=== PATIENT | female | born 1945 | race Caucasian/White ===

== ENCOUNTER → 2017-06-27 15:23 | Outpatient (CLI) | payer MEDICAID, MEDICARE, SELFPAY ==
[2017-06-27 15:51] LABS: Bacteria 0 SEEN /hpf (None Seen); Mucous, Urine 0 SEEN /hpf (<or=2+); Red Blood Cells-Urine 0 SEEN /hpf (0-5); White Blood Cells 0 SEEN /hpf (0-5)
[2017-06-27 18:02] LABS: Color, Urine Yellow (Yellow); Glucose, Dipstick Normal (Normal); Ketone-Dipstick Negative (Negative); Leukocyte Esterase-Dipstick Negative /ul (Negative); Nitrite-Dipstick Negative (Negative); Occult Blood-Urine Negative /ul (Negative); Protein-Dipstick Negative (Negative); Urine Bilirubin Dipstick Negative (Negative); Urine Clarity Sl. Cloudy (Clear); Urine Urobilinogen Normal (Normal)
[2017-06-27 18:34] LABS: Absolute Lymphocyte Count 3.24 X10^3/ul (0.83-4.51); Absolute Neutrophil Count 6.9 X10^3/uL (2.0-7.7); Basophil# 0.06 X10^3/uL; Basophil% 0.5 % (0-1); Eosinophil# 0.34 X10^3/uL; Eosinophils% 2.9 % (0-5); Hemoglobin 14.5 g/dl (12.0-15.0); Lymphocyte # 3.24 X10^3/ul (4.0); Lymphocyte % 27.9 % (19-41); Mean Corp Hgb Conc 32.2 g/gl (32-36); Mean Corpuscular Hgb 28.6 pg (27.0-32.0); Mean Corpuscular Volume 88.8 fL (81-99); Monocyte# 0.98 X10^3/uL; Monocyte% 8.4 % (0-10); Neutrophil # 6.86 X10^3/uL (2.7-7.7); Platelet Count 257 K/mm3 (150-450); RBC Distribution Width CV 14.3 % (11.6-14.6); RBC Distribution Width SD 45.8 fl (35.1-43.9); Red Blood Count 5.07 M/mm3 (4.2-5.4); Squamous Epithelial Cells - UA 0-5 SEEN /hpf (5-10); White Blood Count 11.6 K/mm3 (4.4-11.0)
[2017-06-27 18:40] LABS: ALB/GLOB Ratio 1.1 RATIO (0.9-2.4); AST(SGOT) 14 U/L (15-37); Alanine Aminotransfer ALT/SGPT 21 U/L (13-56); Albumin, Serum 4.1 g/dL (3.2-5.0); Alkaline Phosphatase 98 U/L (45-117); Anion Gap 10 (5-15); BUN 10 mg/dL (7-18); BUN/Creat Ratio 13.6 RATIO (10-20); Calcium,Total 9.7 mg/dL (8.5-10.1); Chloride 101 mmol/L (98-107); Cholesterol 135 mg/dL (200); Creatinine, Serum 0.73 mg/dL (0.55-1.02); EST Glomerular Filtration Rate 83 mL/min (>60); Est Glom Filt Rate - Afr Amer 100 mL/min (>60); Globulin 3.8 g/dL (2.2-4.2); Glucose 95 mg/dL (74-106); High Density Lipoprotein 34 mg/dL; Potassium 4.1 mmol/L (3.5-5.1); Protein, Total 7.9 g/dL (6.4-8.2); Sodium Level 138 mmol/L (136-145); Thyroid Stim Hormone (TSH) 3.09 uIU/mL (0.358-3.74); Triglycerides 267 mg/dL; Very Low Density Lipoprotein 53 mg/dL (5-40)
[2017-06-27 18:52] LABS: POSITIVE COUNT NO; POSITIVE DIFFERENTIAL NO; POSITIVE MORPHOLOGY NO
[2017-06-28 10:03] LABS: Vitamin B12 382 pg/mL (211-911)
== END ==
PROVIDERS: Family Provider Family Medicine; PCP Family Medicine; Visit Provider Family Medicine
DX: E11.9 Type 2 diabetes mellitus without complications (principal); Z72.0 Tobacco use; G62.9 Polyneuropathy, unspecified
CPT/HCPCS: 80053; 80061; 81001; 82043; 82570; 82607; 82746; 83036; 84425; 84443; 85025

== ENCOUNTER → 2017-07-11 08:48 | Outpatient (CLI) | payer MEDICARE, SELFPAY ==
--- NOTE | 2017-07-11 10:00 | NM_ITS ---
CLINICAL: 72-year-old female with reported history of early satiety. SEMI-SOLID PHASE 99m Tc SULFUR COLLOID GASTRIC EMPTYING STUDY COMPARISON: None available FINDINGS: The patient was administered 1.1 mCi of 99m Tc sulfur colloid mixed with oatmeal and consumed per os. Image acquisitions in the anterior-posterior projections for a total of 60 minutes. There is prompt visualization of the stomach. There is no gastroesophageal reflux identified. The T1/2 linear fit was calculated to be 38.10 minutes, (Normal: 12-56 minutes). NM/Gastric Emptying Study IMPRESSION: 1. NORMAL 99m Tc sulfur colloid semi-solid phase (oatmeal) gastric emptying imaging examination. A. There is normal and preserved semi-solid phase gastric emptying compared to normal controls with maintained first order kinetics throughout all components of the examination. (Raven et al, J Nucl Med Tech 38: 186, 2010). Electronically Signed: Isidro Crocker DO at 23:54 EDT Tel , Service support ,
--- NOTE | 2017-07-11 12:19 | PFT ---
INTRODUCTION: The patient is a 72-year-old female who presents for pulmonary function testing secondary to a diagnosis of COPD. Respiratory therapy reports good patient effort. Bronchodilators were used during testing. INTERPRETATION: Forced expiration spirometry demonstrates the presence of a severe large airways obstructive ventilatory defect. There was a significant response to aerosolized bronchodilators noted. Spirograms are of fair quality and do not plateau indicating slow emptying of the lungs. Body plethysmography was performed and reveals an elevated RV to 142% of predicted, indicative of underlying air trapping. Diffusing capacity by single breath CO is mildly reduced at 62% of predicted. IMPRESSION: These pulmonary function studies demonstrate the presence of a partially reversible severe large airways obstructive ventilatory defect with associated air trapping and reduction in diffusing capacity. There are no previous pulmonary function studies available for comparison.
== END ==
PROVIDERS: Family Provider Family Medicine; PCP Family Medicine; Visit Provider Family Medicine
DX: J44.9 Chronic obstructive pulmonary disease, unspecified (principal); R68.81 Early satiety
CPT/HCPCS: 78264; 94060; 94726; 94729; A9541

== ENCOUNTER → 2017-08-28 12:05 | Outpatient (CLI) | payer MEDICARE, SELFPAY ==
--- NOTE | 2017-08-28 12:14 | RAD_ITS ---
STUDY: X-RAY - SACRUM/COCCYX REASON FOR EXAM: Female, 72 years old. Chronic pain TECHNIQUE: 3 view(s) of the sacrum and coccyx were obtained. COMPARISON: None. FINDINGS: Normal bilateral sacroiliac joints. Normal visualized sacral ala and fused sacral bodies. Normal sacrococcygeal junction with a normal angulation. Normal coccygeal segments. The presacral soft tissue structures are unremarkable. There is no demonstrated fracture. Degenerative changes noted in the lower lumbar spine RAD/Sacrum-Coccyx min 2 Views IMPRESSION: No fracture or suspicious osseous lesion Electronically Signed: Raymond Elmore MD at 8:25 EDT , Service support ,
--- NOTE | 2017-08-28 12:14 | RAD_ITS ---
STUDY: X-RAY - PELVIS AND LEFT HIP REASON FOR EXAM: Female, 72 years old. Chronic pain TECHNIQUE: Radiological exam, hip, unilateral, with pelvis when performed; 2 or 3 views. 3 views. COMPARISON: None. FINDINGS: There is a non-specific bowel gas pattern. Normal visualized soft tissue structures. There is narrowing with cortical sclerosis and osteophyte formation of the sacroiliac joint consistent with degenerative osteoarthritic changes. Normal bilateral superior and inferior pubic rami. Normal pubic symphysis. Normal bilateral ischial tuberosities. Normal visualized femoral head. Normal acetabulum. There is moderate articular joint space narrowing of the hip. RAD/Hip 2-3 Views with Pelvis IMPRESSION: Degenerative arthrosis, no demonstrated fracture or aggressive osseous lesion Electronically Signed: Raymond Elmore MD at 15:51 EDT , Service support ,
--- NOTE | 2017-08-28 12:14 | RAD_ITS ---
STUDY: X-RAY - LUMBAR SPINE REASON FOR EXAM: Female, 72 years old. Back pain TECHNIQUE: 5 view(s) of the lumbar spine were obtained. COMPARISON: None FINDINGS: There are NO fractures or malalignments. There are multilevel degenerative disc and facet changes. Facet joints are intact. The sacrum and sacroiliac joints are intact. The soft tissues are unremarkable. RAD/L/S Spine Min 4 Views IMPRESSION: There are degenerative changes of the lumbar spine. There are NO fractures or malalignments. Electronically Signed: Gary Marquez MD at 4:59 EDT , Service support ,
== END ==
PROVIDERS: Family Provider Family Medicine; PCP Family Medicine; Visit Provider Family Medicine
DX: M25.559 Pain in unspecified hip (principal); M54.5 Low back pain; S32.9XXA Fracture of unspecified parts of lumbosacral spine and pelvis, initial encounter for closed fracture
CPT/HCPCS: 72110; 72220; 73502

== ENCOUNTER 2017-09-11 15:46 | Outpatient (RCR) | payer MEDICARE, SELFPAY ==
--- NOTE | 2017-11-26 10:59 | HP.PTDCNRP_ITS ---
HP - Discharge Summary (1) - Patient Information JOEY POSADA was seen in my office for initial evaluation on 09/11/17. The following Plan of Care was established for this patient: Initial Frequency: 2x /Week Initial Duration: 4 Weeks - Anticipated Interventions Patient/Client Instruction: Educate patient on: Condition, Plan of Care, Risk Factors, Benefits of Fitness Program For the Purpose of:: To improve health and function, To foster healthy habits, To improve decision making, To facilitate caregiver knowledge, To improve self management, To prevent re-injury, To improve ability to perform tasks related to life management, To improve tolerance to ADL's Therapeutic Exercise to Include: Strength training, Power training, Body mechanics, Postural training, Flexibilty training, Passive ROM, Active ROM For the Purpose of:: To decrease pain, To decrease swelling/inflammation, To increase ROM, To improve nutrient delivery to tissue, To improve gait and locom otor functions, To improve health of tissue, To decrease soft tissue restriction, To increase flexibility/ROM IF ES: Yes Cryotherapy (ice pack, ice massage): Yes Ultrasound (thermal/non thermal): Yes For the Purpose of:: To decrease pain, To decrease swelling/inflammation, To increase ROM, To improve nutrient delivery to tissue This patient was last seen in our office 09/11/17. Pertinent comments regarding their Physical therapy will appear below: Pt. was seen for her hip pain. She was concerned about a possibly avulsion fracture of her ASIS at this point in time. He were to work on ROM, strengthening and gait progression as tolerated. Pt. did not return to any subsequent visits. Pt. has not been seen in ~3 months and will be DC from PT at this point in time. At this point I will be discontinuing this patient from physical therapy. I would be happy to see this patient again in the future if found appropriate by the physician. Thank you! Shola Aceves
== END 2017-09-11 19:00 | disposition home or self-care (01) ==
LOC: PT 15:46
PROVIDERS: Family Provider Family Medicine; PCP Family Medicine; Visit Provider Family Medicine
DX: M25.559 Pain in unspecified hip (principal)
CPT/HCPCS: 97162

== ENCOUNTER → 2017-10-18 08:47 | Outpatient (CLI) | payer MEDICARE, SELFPAY | PROVIDERS: Family Provider Family Medicine; PCP Family Medicine; Visit Provider Specialist | DX: M16.11 Unilateral primary osteoarthritis, right hip (principal) | CPT/HCPCS: 20610; 77002; Q9967; J0702 ==

== ENCOUNTER → 2017-10-31 16:24 | Outpatient (CLI) | payer MEDICARE, SELFPAY ==
--- NOTE | 2017-10-31 16:26 | RAD_ITS ---
STUDY: X-RAY - LUMBAR SPINE REASON FOR EXAM: Female, 72 years old. Low back pain after fall. TECHNIQUE: 5 view(s) of the lumbar spine were obtained. COMPARISON: Radiographs of the lumbar spine dated August 28, 2017. FINDINGS: There is an exaggerated lumbar lordosis. There is mild curvature of the thoracic and lumbar spine with convexity towards the right. There is a normal alignment of the vertebrae. There is multilevel endplate spondylosis of the lumbar vertebrae. There is multi-level degenerative disc disease with multi-level disc space narrowing. There is no demonstrated fracture. There is multilevel degenerative arthropathy of the facet joints of the lumbar spine. There is atherosclerotic calcification of the abdominal aorta without a demonstrated aneurysm. Surgical clips are visible in the right upper quadrant. There are degenerative changes of the sacroiliac joints. RAD/L/S Spine Min 4 Views IMPRESSION: 1. Multilevel spondylosis, degenerative disc disease and degenerative arthropathy of the lumbar spine. 2. Bilateral sacroiliitis. 3. No radiographic evidence of acute compression or displaced fracture of the lumbar spine. Electronically Signed: Abi Martínez MD at 10:32 EDT , Service support ,
== END ==
PROVIDERS: Family Provider Family Medicine; PCP Family Medicine; Visit Provider Family Medicine
DX: S33.5XXA Sprain of ligaments of lumbar spine, initial encounter (principal); W19.XXXA Unspecified fall, initial encounter
CPT/HCPCS: 72110

== ENCOUNTER → 2017-11-14 14:14 | Outpatient (CLI) | payer MEDICARE, SELFPAY ==
[2017-11-14 14:17] LABS: Mucous, Urine 0 SEEN /hpf (<or=2+); Red Blood Cells-Urine 0 SEEN /hpf (0-5); Squamous Epithelial Cells - UA 0 SEEN /hpf (5-10); White Blood Cells 0 SEEN /hpf (0-5)
[2017-11-14 15:50] LABS: Absolute Neutrophil Count 6.3 X10^3/uL (2.0-7.7); Basophil# 0.07 X10^3/uL; Basophil% 0.7 % (0-1); Eosinophil# 0.32 X10^3/uL; Eosinophils% 3.1 % (0-5); Hematocrit 39.7 % (37-47); Lymphocyte % 25.8 % (19-41); Mean Corp Hgb Conc 32.7 g/gl (32-36); Mean Corpuscular Hgb 28.7 pg (27.0-32.0); Mean Corpuscular Volume 87.6 fL (81-99); Mean Platelet Vol. 11.4 fl (6.2-12.0); Monocyte# 0.85 X10^3/uL; Monocyte% 8.1 % (0-10); Neutrophil # 6.31 X10^3/uL (2.7-7.7); Neutrophil % 60.4 % (47-70); Platelet Count 230 K/mm3 (150-450); RBC Distribution Width CV 14.9 % (11.6-14.6); RBC Distribution Width SD 47.2 fl (35.1-43.9); Red Blood Count 4.53 M/mm3 (4.2-5.4); White Blood Count 10.5 K/mm3 (4.4-11.0)
[2017-11-14 15:52] LABS: POSITIVE COUNT NO; POSITIVE DIFFERENTIAL NO; POSITIVE MORPHOLOGY NO
[2017-11-14 15:59] LABS: AST(SGOT) 14 U/L (15-37); Alanine Aminotransfer ALT/SGPT 25 U/L (13-56); Albumin, Serum 3.5 g/dL (3.2-5.0); Alkaline Phosphatase 91 U/L (45-117); Anion Gap 13 (5-15); BUN 9 mg/dL (7-18); Calcium,Total 9.3 mg/dL (8.5-10.1); Chloride 101 mmol/L (98-107); Cholesterol 126 mg/dL (200); Creatinine, Serum 0.69 mg/dL (0.55-1.02); EST Glomerular Filtration Rate 88 mL/min (>60); Est Glom Filt Rate - Afr Amer 107 mL/min (>60); Globulin 3.5 g/dL (2.2-4.2); Glucose 140 mg/dL (74-106); High Density Lipoprotein 32 mg/dL; Potassium 3.9 mmol/L (3.5-5.1); Sodium Level 137 mmol/L (136-145); Triglycerides 208 mg/dL; Very Low Density Lipoprotein 42 mg/dL (5-40)
[2017-11-14 16:01] LABS: Hemoglobin A1c 7.3 % (4.2-6.3)
[2017-11-14 16:15] LABS: Color, Urine Yellow (Yellow); Glucose, Dipstick Normal (Normal); Ketone-Dipstick Negative (Negative); Leukocyte Esterase-Dipstick 25 /ul (Negative); Nitrite-Dipstick Negative (Negative); Occult Blood-Urine Negative /ul (Negative); Protein-Dipstick Negative (Negative); Urine Bilirubin Dipstick Negative (Negative); Urine Clarity Clear (Clear); Urine Urobilinogen Normal (Normal)
[2017-11-14 16:28] LABS: Bacteria RARE /hpf (None Seen)
[2017-11-14 16:47] LABS: Microalbumin,Random Urine < 5.0 mg/L (NO RANGE EST.)
== END ==
PROVIDERS: Family Provider Family Medicine; PCP Family Medicine; Visit Provider Family Medicine
DX: E11.9 Type 2 diabetes mellitus without complications (principal); E78.5 Hyperlipidemia, unspecified; Z72.0 Tobacco use
CPT/HCPCS: 36415; 80053; 80061; 81001; 82043; 82570; 83036; 85025

== ENCOUNTER → 2018-02-21 16:45 | Outpatient (CLI) | payer MEDICARE, SELFPAY ==
[2018-02-21 16:48] LABS: Mucous, Urine 0 SEEN /hpf (<or=2+); Red Blood Cells-Urine 0 SEEN /hpf (0-5)
[2018-02-21 18:10] LABS: Absolute Lymphocyte Count 2.64 X10^3/ul (0.83-4.51); Absolute Neutrophil Count 6.5 X10^3/uL (2.0-7.7); Basophil# 0.04 X10^3/uL; Basophil% 0.4 % (0-1); Eosinophil# 0.34 X10^3/uL; Eosinophils% 3.3 % (0-5); Hemoglobin 13.4 g/dl (12.0-15.0); Lymphocyte # 2.64 X10^3/ul (4.0); Lymphocyte % 25.7 % (19-41); Mean Corp Hgb Conc 31.9 g/gl (32-36); Mean Corpuscular Volume 87.9 fL (81-99); Mean Platelet Vol. 11.8 fl (6.2-12.0); Monocyte% 6.8 % (0-10); Neutrophil # 6.47 X10^3/uL (2.7-7.7); Neutrophil % 62.8 % (47-70); Platelet Count 211 K/mm3 (150-450); RBC Distribution Width CV 13.5 % (11.6-14.6); RBC Distribution Width SD 43.7 fl (35.1-43.9); Red Blood Count 4.78 M/mm3 (4.2-5.4); White Blood Count 10.3 K/mm3 (4.4-11.0)
[2018-02-21 18:12] LABS: Color, Urine Yellow (Yellow); Glucose, Dipstick Normal (Normal); Ketone-Dipstick Negative (Negative); Leukocyte Esterase-Dipstick 25 /ul (Negative); Nitrite-Dipstick Negative (Negative); Occult Blood-Urine Negative /ul (Negative); Protein-Dipstick Negative (Negative); Urine Bilirubin Dipstick Negative (Negative); Urine Clarity Clear (Clear); Urine Urobilinogen Normal (Normal)
[2018-02-21 18:24] LABS: Bacteria RARE /hpf (None Seen); Squamous Epithelial Cells - UA 0-5 SEEN /hpf (5-10); White Blood Cells 0-5 SEEN /hpf (0-5)
[2018-02-21 18:30] LABS: POSITIVE COUNT NO; POSITIVE DIFFERENTIAL NO; POSITIVE MORPHOLOGY NO
[2018-02-21 18:33] LABS: ALB/GLOB Ratio 1.3 RATIO (0.9-2.4); AST(SGOT) 14 U/L (15-37); Alanine Aminotransfer ALT/SGPT 24 U/L (13-56); Albumin, Serum 3.7 g/dL (3.2-5.0); Alkaline Phosphatase 96 U/L (45-117); Anion Gap 9 (5-15); BUN 10 mg/dL (7-18); BUN/Creat Ratio 13.5 RATIO (10-20); Calcium,Total 9.4 mg/dL (8.5-10.1); Chloride 100 mmol/L (98-107); Cholesterol 140 mg/dL (200); Creatinine, Serum 0.74 mg/dL (0.55-1.02); EST Glomerular Filtration Rate 82 mL/min (>60); Est Glom Filt Rate - Afr Amer 99 mL/min (>60); Globulin 2.9 g/dL (2.2-4.2); Glucose 188 mg/dL (74-106); High Density Lipoprotein 31 mg/dL; Potassium 4.3 mmol/L (3.5-5.1); Protein, Total 6.6 g/dL (6.4-8.2); Sodium Level 138 mmol/L (136-145); Triglycerides 332 mg/dL; Very Low Density Lipoprotein 66 mg/dL (5-40)
[2018-02-21 18:38] LABS: Hemoglobin A1c 8.7 % (4.2-6.3)
== END ==
PROVIDERS: Family Provider Family Medicine; PCP Family Medicine; Visit Provider Family Medicine
DX: E78.5 Hyperlipidemia, unspecified (principal); I10 Essential (primary) hypertension; E11.9 Type 2 diabetes mellitus without complications
CPT/HCPCS: 36415; 80053; 80061; 81001; 83036; 85025

== ENCOUNTER → 2018-06-16 08:09 | Outpatient (CLI) | payer MEDICARE, SELFPAY ==
[2018-06-16 08:14] LABS: Mucous, Urine 0 SEEN /hpf (<or=2+)
[2018-06-16 10:11] LABS: Absolute Lymphocyte Count 2.02 X10^3/ul (0.83-4.51); Absolute Neutrophil Count 5.8 X10^3/uL (2.0-7.7); Basophil# 0.05 X10^3/uL; Basophil% 0.5 % (0-1); Eosinophil# 0.23 X10^3/uL; Eosinophils% 2.5 % (0-5); Hematocrit 42.7 % (37-47); Hemoglobin 13.5 g/dl (12.0-15.0); Lymphocyte # 2.02 X10^3/ul (4.0); Lymphocyte % 22.1 % (19-41); Mean Corp Hgb Conc 31.6 g/gl (32-36); Mean Corpuscular Hgb 27.7 pg (27.0-32.0); Mean Corpuscular Volume 87.7 fL (81-99); Mean Platelet Vol. 11.2 fl (6.2-12.0); Monocyte# 0.89 X10^3/uL; Monocyte% 9.7 % (0-10); Neutrophil % 63.6 % (47-70); Platelet Count 187 K/mm3 (150-450); RBC Distribution Width CV 15.3 % (11.6-14.6); Red Blood Count 4.87 M/mm3 (4.2-5.4); White Blood Count 9.1 K/mm3 (4.4-11.0)
[2018-06-16 10:14] LABS: Color, Urine Yellow (Yellow); Glucose, Dipstick Normal (Normal); Ketone-Dipstick Negative (Negative); Leukocyte Esterase-Dipstick 100 /ul (Negative); Nitrite-Dipstick Negative (Negative); Occult Blood-Urine Negative /ul (Negative); Protein-Dipstick 15 mg/dl (Negative); Urine Bilirubin Dipstick Negative (Negative); Urine Clarity Clear (Clear); Urine Urobilinogen Normal (Normal); Urine pH 6.5 (5.0 - 8.0)
[2018-06-16 10:20] LABS: Bacteria RARE /hpf (None Seen); POSITIVE COUNT NO; POSITIVE DIFFERENTIAL NO; POSITIVE MORPHOLOGY NO; Red Blood Cells-Urine 0 SEEN /hpf (0-5); Squamous Epithelial Cells - UA 0-5 SEEN /hpf (5-10); White Blood Cells 0-5 SEEN /hpf (0-5)
[2018-06-16 10:25] LABS: ALB/GLOB Ratio 1.1 RATIO (0.9-2.4); AST(SGOT) 15 U/L (15-37); Alanine Aminotransfer ALT/SGPT 24 U/L (13-56); Albumin, Serum 3.6 g/dL (3.2-5.0); Alkaline Phosphatase 83 U/L (45-117); Anion Gap 8 (5-15); BUN 12 mg/dL (7-18); BUN/Creat Ratio 15.3 RATIO (10-20); Calcium,Total 9.1 mg/dL (8.5-10.1); Chloride 107 mmol/L (98-107); Cholesterol 134 mg/dL (200); Creatinine, Serum 0.78 mg/dL (0.55-1.02); EST Glomerular Filtration Rate 77 mL/min (>60); Est Glom Filt Rate - Afr Amer 93 mL/min (>60); Globulin 3.3 g/dL (2.2-4.2); Glucose 185 mg/dL (74-106); High Density Lipoprotein 34 mg/dL; Potassium 4.1 mmol/L (3.5-5.1); Protein, Total 6.9 g/dL (6.4-8.2); Sodium Level 140 mmol/L (136-145); Triglycerides 299 mg/dL; Very Low Density Lipoprotein 60 mg/dL (5-40)
[2018-06-16 10:35] LABS: Hemoglobin A1c 8.4 % (4.2-6.3)
== END ==
PROVIDERS: PCP Family Medicine; Visit Provider Family Medicine
DX: I10 Essential (primary) hypertension (principal); E11.9 Type 2 diabetes mellitus without complications; E78.5 Hyperlipidemia, unspecified
CPT/HCPCS: 80053; 80061; 81001; 83036; 85025

== ENCOUNTER 2018-07-01 07:38 | Day surgery (SDC) | payer MEDICARE, SELFPAY ==
[2018-06-24 15:36] VITALS: BMI 29.0
--- NOTE | 2018-06-24 16:05 | HP_ITS ---
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 Shearing Required: No Is patient in pain?: No Allergies Penicillins Allergy (Verified 06/24/18 15:37) Unknown Tetanus Vaccines and Toxoid Allergy (Verified 06/24/18 15:37) Unknown HORSE SERUM Allergy (Uncoded 10/17/17 09:27) Unknown Medications albuterol sulfate HFA 90 mcg/actuation aerosol inhaler 2 puff INHALATION BID PRN g 06/24/18 [History Confirmed 06/24/18] aspirin 81 mg tablet,delayed release 81 mg PO DAILY 06/24/18 [History Confirmed 06/24/18] atorvastatin 40 mg tablet 40 mg PO DAILY 06/24/18 [History Confirmed 06/24/18] budesonide-formoterol HFA 160 mcg-4.5 mcg/actuation aerosol inhaler 2 puff INHALATION BID 06/24/18 [History Confirmed 06/24/18] clopidogrel 75 mg tablet 75 mg PO DAILY 06/24/18 [History Confirmed 06/24/18] fexofenadine 180 mg tablet 180 mg PO DAILY 06/24/18 [History Confirmed 06/24/18] gabapentin 300 mg capsule 300 mg PO BID 06/24/18 [History Confirmed 06/24/18] glipizide 10 mg tablet 10 mg PO BID 06/24/18 [History Confirmed 06/24/18] linagliptin 5 mg tablet 5 mg PO DAILY 06/24/18 [History Confirmed 06/24/18] metformin 500 mg tablet 500 mg PO BID 06/24/18 [History Confirmed 06/24/18] metoprolol succinate ER 25 mg capsule sprinkle, ext. release 24 hr 25 mg PO BID ea 06/24/18 [History Confirmed 06/24/18] nitroglycerin 0.4 mg sublingual tablet 0.4 mg SUBLINGUAL Q5-15M PRN 06/24/18 [History Confirmed 06/24/18] ondansetron HCl 4 mg tablet 4 mg PO BID-TID PRN 06/24/18 [History Confirmed 06/24/18] ranitidine 150 mg tablet 150 mg PO BID 06/24/18 [History Confirmed 06/24/18] [facility] Medical History Screening for intestinal cancer (Acute) Allergic conjunctivitis and rhinitis (Acute) CAD (coronary artery disease) (Acute) Diabetes (Acute) GERD (gastroesophageal reflux disease) (Acute) History of stroke (Acute) Hyperlipidemia (Acute) Hypertriglyceridemia (Acute) Neuropathy (Acute) Tobacco abuse (Acute) HTN (hypertension) (Chronic) Surgical History History of breast biopsy (Acute) History of dilatation and curettage (Acute) History of tubal ligation (Acute) Family History Daughter Asthma Thyroid disorder Mother Diabetes Heart disease Hypertension Father Heart disease Hypertension Son Heart disease Social History Smoking Status: Current every day smoker alcohol intake: current alcohol intake frequency: holidays/special occasions only substance use type: does not use HPI HPI HPI: JOEY POSADA, is a 73 F who presents to the office today for HPI HPI Surgical H&P: Yes HPI: JOEY POSADA, is a 73 F who presents to the office today for surgical consultation regarding the need for screening colonoscopy. The patient also has some intermittent diarrhea. She is referred by her primary care physician Dr Jc Hines and a written copy of my surgical consult recommendations will return to him. The patient states that she never has had a colonoscopy. She states that there is no family history that she knows of of colon cancer or colon polyps. The patient states that on July 09 she is supposed to be asleep in order to have shots in her back performed by Dr. Guevara. She has been provided instructions that she needs to be off of her clopidogrel 1 week prior to that procedure. In further discussion with her its evident that she has had a previous myocardial infarction and 3 previous coronary stents. She also states that she has had a TIA/CVA. She states that intermittently she will have angina. She wears a nitroglycerin container around her neck. She states that she is not often have to take nitroglycerin. She has not noted any bright red blood per rectum or melena. She has not had any weight loss. She denies history of DVT She does continue to smoke cigarettes at the rate of a half a pack per day. ROS General General: Yes fatigue; no weight change, appetite, colon cancer, breast cancer or weakness HEENT HEENT: Yes difficulty swallowing and eye surgery; no eye injury, swollen glands or hoarseness Endo Endocrine: Yes diabetes mellitus; no thyroid disease, thyroid cancer, Hair loss, heat intolerance or cold intolerance Skin Skin: No rash or changing moles Breast Breast: No left breast lump, right breast lump, nipple discharge, breast pain, abnormal mammogram, abnormal US or breast enlargement Musc Musculoskeletal: Yes back problems, arthritis and rheumatoid arthritis; no gout or joint pain Cardio Cardiovascular: Yes heart disease, high blood pressure, heart attack and heart stent; no murmur, pacemaker, atrial fibrillation, palpitations, shortness of breat with exertion or chest pain Psych Psychiatric: Yes anxiety; no depression or hearing voices Resp Respiratory: Yes shortness of breath, No sleep apnea, Yes cough, Yes COPD, Yes asthma, No emphysema, No wheezing Gastro Gastrointestinal: Yes abdominal pain, No nausea or vomiting, Yes diarrhea, No constipation, No blood in stool, Yes acid reflux, No hemorrhoids, No ulcers, No gallbladder problem, No black,tarry stools Ty Hematologic: Yes blood thinners, Yes blood disorders, No bleeding, No anemia, Yes blood clots Neuro Neurologic: No system reviewed and no additional complaints, except as docu, No as per HPI, No abnormal walking, No abnormal hearing, No abnormal movements, No abnormal speech, No behavioral changes, No burning sensations, No confusion, No seizure-like activity, No unsteadiness, No dizziness, No localized weakness, No frequent falls, No headache(s), No lack of coordination, No loss of vision, No memory loss, Yes numbness, No other visual disturbances, No radiating pain, No restless legs, No sensory deficit, No fainting, Yes tingling, No tremor(s), No weakness, Yes other (Stroke/TIA) Exam Const General: cooperative, no acute distress Nutritional Appearance: overweight HENMT Head: normal to inspection Chest Chest palpation & inspection: normal inspection of the chest Breast Palpation: No nipple discharge Resp Effort & Inspection: normal respiratory effort Auscultation: clear to auscultation bilaterally Cardio Rate: regular rate Rhythm: regular rhythm Heart Sounds: no murmurs GI Palpation: soft, no hepatosplenomegaly Auscultation: normal bowel sounds Neuro General: alert, awake Extrem General: no calf tenderness bilaterally Psych Affect: normal affect Assessment & Plan Problems 1. Screening for intestinal cancer Z12.10 Plan I am recommending to the patient a colonoscopy with possible biopsy or polypectomy as indicated. She is aware of the technique, benefit, risks and alternatives. It would not be unreasonable since she is going to be off the Plavix to utilize a part of that time.. We of course will not want to interfere with Dr. Guevara's procedure. It is of interest of it that the patient will already be off of her clopidogrel. I believe that it is important since she claims that she has intermittent chest pain to get medical clearance to pursue. We have contacted the patient's nurse practitioner Keara Sanchez who will be assisting us by seeing the patient tomorrow. This is whom the patient refers to regarding her cardiac issues Because of the patient's cardiac and stroke risk history I anticipate proceeding with monitored anesthesia care. She has had an opting to ask and have questions answered. Tentatively we will schedule for July 01 I very much appreciate the kind opportunity of assisting with her surgical care CC: Dr Jc Hines and Keara Sanchez, [facility] Sherman Anaya M.D., F.A.C.S. Coding Level of Care Code Detailed, Low Diagnoses Screening for intestinal cancer Z12.10 06/24/18 [id number] <Electronically signed by Sherman Anaya MD> Date Sherman Anaya MD I have re-examined the patient. There are no clinical changes since date of exam.
[2018-07-01 08:10] VITALS: BP 128/58; PULSE 73; RESP 16; TEMP 36.8; O2SAT 97; BMI 29.1
--- NOTE | 2018-07-01 09:00 | COLBX_PTH ---
PATIENT: JOEY POSADA LOC: EN U#:[id number] AGE/SX: 73/F ROOM: RE07/01/[address]: Dr. Sherman Anaya MD : 1945 BED: DIS: 07/01/2018 SPEC #: [id number] RECD: 07/01/18 09:57 STATUS: ROBBY DANA #: [id number] EVANGELINA: 07/01/18 09:[address]: Sherman Anaya DEPT: SURGICAL PATHOLOGY RECD BY: Heriberto Aparicio ENTERED: 07/01/18 10:30 SP TYPE: COLON BX HARRIS DR: Dr. Jc Hines MD Tissues: A - Descending colon B - Rectum, NOS Procedures: Surgery Specimen Level IV HEADER OPERATION: Colonoscopy (MAC) PRE-OP DIAGNOSIS: Screening colonoscopy TISSUE SUBMITTED: A - Descending colon polyp biopsy, B - Proximal rectum polyp biopsy MICROSCOPIC DIAGNOSIS A. Descending colon polyp, biopsy: Tubular adenoma. B. Proximal rectal polyp, biopsy: Hyperplastic polyp. AM:latoya 07/02/18 MICROSCOPIC DESCRIPTION Slides are reviewed. GROSS DESCRIPTION A - Received in fixative is one container labeled with the patient's name and designated descending colon polyp biopsy. The specimen consists of one irregular fragment of light trevino soft tissue that measures 0.3 x 0.3 x 0.1 cm. The specimen is totally submitted in one cassette. B - Received in fixative is one container labeled with the patient's name and designated proximal rectum polyp biopsy. The specimen consists of two irregular fragments of light trevino soft tissue that in aggregate measure 0.6 x 0.4 x 0.1 cm. The specimen is totally submitted in one cassette. / SJ:latoya 07/01/18 TC:5 CPT: 94739 x2
[2018-07-01 09:01] LABS: Bedside Glucose 182 mg/dL (70-110)
--- NOTE | 2018-07-01 09:50 | OP.ENDO_ITS ---
07/01/2018 Jc Hines [address] [place] [address] Re : Colonoscopy procedure for Pilar Campbell Dear Dr. Hines This procedure was performed on Sunday, July 01, 2018. My impressions and recommendations are as follows: Impressions : - Hemorrhoids found on perianal exam. - One 5 mm polyp in the mid descending colon, removed with a cold biopsy forceps. Resected and retrieved. - One 6 mm polyp in the rectum, removed with a cold biopsy forceps. Resected and retrieved. - Diverticulosis in the sigmoid colon. - Tortuous colon. Recommendations : - Discharge patient to home. - Resume previous diet. - Continue present medications. - Repeat colonoscopy in 5 years for surveillance. - Telephone my office for pathology results in 1 week. My findings are described in the full procedure note, which is enclosed. If I can be of further assistance, please feel free to contact me at Doctor phone number(s): Work: . Sincerely, Sherman Anaya MD 07/01/2018 9:49:42 AM This report has been signed electronically.
[2018-07-01 09:51] VITALS: BP 128/58; BP 98/38; PULSE 69; RESP 16; TEMP 35.9; O2SAT 95
[2018-07-01 09:57] VITALS: BP 106/90; BP 128/58; PULSE 69; RESP 16; O2SAT 96
[2018-07-01 10:04] VITALS: BP 100/48; BP 128/58; PULSE 67; RESP 16; O2SAT 95
[2018-07-01 10:05] VITALS: BP 128/58; BP 99/53; PULSE 67; RESP 16; TEMP 36.1; O2SAT 96
[2018-07-01 10:45] VITALS: BP 128/58
== END 2018-07-01 10:55 | disposition home or self-care (01) ==
LOC: EN 07:38 → AC 07:40
PROVIDERS: Family Provider Family Medicine; PCP Family Medicine; Referring Provider Family Medicine; Visit Provider Surgery
PROC: 0DJD8ZZ Inspection of Lower Intestinal Tract, Via Natural or Artificial Opening Endoscopic (ICD-10-PCS; CPT 45378; principal; 2018-07-01 08:55)
DX: Z12.11 Encounter for screening for malignant neoplasm of colon (principal); K64.9 Unspecified hemorrhoids; D12.4 Benign neoplasm of descending colon; K62.1 Rectal polyp; K57.30 Diverticulosis of large intestine without perforation or abscess without bleeding; I10 Essential (primary) hypertension; E11.9 Type 2 diabetes mellitus without complications; Z88.0 Allergy status to penicillin; Z79.82 Long term (current) use of aspirin; F17.210 Nicotine dependence, cigarettes, uncomplicated; Z98.51 Tubal ligation status; Z86.73 Personal history of transient ischemic attack (TIA), and cerebral infarction without residual deficits
CPT/HCPCS: 45380; 82962; 88305; J7120